=== PATIENT | male | born 1950 | race Hispanic/Latino ===

== ENCOUNTER 2018-02-20 17:36 | Inpatient (IN) | payer MEDICARE ==
[~2018-02-20] VITALS: Ht 175.3 cm; Wt 93.0 kg
[2018-02-20 23:00] VITALS: BP 125/59
[2018-02-21] VITALS (10 sets, daily range): BP systolic 122–210; BP diastolic 3–109
[2018-02-21] MEDS ORDERED: ONDANSETRON 4 MG TABLET PO PRN (00:30)
[2018-02-21] MEDS ORDERED: LIDOCAINE HCL-MPF 1% 2ML VIAL IVP PRN (00:30)
[2018-02-21] MEDS ORDERED: POTASSIUM CHLORIDE 20MEQ/100ML 100 ML IV PRN (00:30)
[2018-02-21] MEDS ORDERED: POTASSIUM CHLORIDE 10% ELIXIR 20 MEQ/15 ML UDCUP PO PRN (00:30)
[2018-02-21] MEDS ORDERED: ACETAMINOPHEN 325 MG TAB PO PRN ×2 (00:30)
[2018-02-21] MEDS ORDERED: POTASSIUM CHLORIDE 20 MEQ ERTAB PO PRN (00:30)
[2018-02-21] MEDS ORDERED: MAGNESIUM 2GM PREMIX 50ML 50 ML IV SCH (00:30)
[2018-02-21] MEDS ORDERED: VANCOMYCIN PROTOCOL PER PHARMACY IV SCH ×2 (00:30→02:15)
[2018-02-21] MEDS ORDERED: MORPHINE SULFATE 2 MG/ML 1ML SYG IVP PRN (00:30)
[2018-02-21] MEDS ORDERED: GLUCAGON 1MG KIT 1 MG ML IM PRN (00:30)
[2018-02-21] MEDS ORDERED: DEXTROSE 50%-WATER 50 ML DISP.SYRIN IV PRN (00:30)
[2018-02-21] MEDS: VANCOMYCIN 1GM+NS 250ML 500 ML IV SCH (02:24)
[2018-02-21 04:08] LABS: HEMATOCRIT 34.4 % (42-54); MEAN CORPUSCULAR HEMOGLOBIN 32.9 pg (27.0-33.0); MEAN CORPUSCULAR HGB CONC 34.7 g/dL (32.0-36.0); MEAN CORPUSCULAR VOLUME 94.8 fL (79-99); PLATELET COUNT (AUTO) 375 K/uL (130-400); RED BLOOD CELL COUNT(AUTO) 3.63 MIL/uL (4.50-6.20); RED CELL DISTRIBUTION WIDTH 14.1 % (11.0-15.5); WHITE BLOOD COUNT (AUTO) 10.7 K/uL (4.8-10.8)
[2018-02-21 04:27] LABS: CREATININE 1.9 mg/dL (0.5-1.5); POTASSIUM 3.7 mmol/L (3.5-5.1)
[2018-02-21] MEDS ORDERED: MEROPENEM 1GM IVPB PREMIXED 1 GM IV SCH (06:00)
[2018-02-21] MEDS: MEROPENEM 1 GM VIAL IVP SCH ×3 (06:36→22:33)
[2018-02-21] MEDS: INSULIN HUMULIN R 100 UNIT/ML 3ML SQ SCH ×4 (06:39→20:26)
[2018-02-21] MEDS ORDERED: COMPOUND IV REFRIGERATED 1 EACH IVSOLN MISC PRN (08:00)
[2018-02-21] MEDS: DOCUSATE SODIUM 100 MG CAP PO SCH ×2 (09:42→20:29)
[2018-02-21] MEDS: LISINOPRIL 10 MG TABLET PO SCH (09:42)
[2018-02-21] MEDS: ENOXAPARIN SODIUM 40 MG/0.4 ML SYRINGE SQ SCH (09:43)
[2018-02-21] MEDS: FAMOTIDINE 20MG TAB 20 MG TAB PO SCH ×2 (09:43→20:29)
[2018-02-21] MEDS: METOPROLOL TARTRATE 25 MG TAB PO SCH ×2 (15:34→17:06)
[2018-02-21] MEDS ORDERED: DIPH,PERTUSS(ACELL),TET VAC/PF 0.5 ML VIAL IM ONE (16:30)
[2018-02-21] MEDS: LACTULOSE 20 GM/30 ML UDCUP PO PRN ×2 (17:06→20:29)
[2018-02-21] MEDS ORDERED: CLONIDINE HCL 0.1 MG TABLET PO PRN (19:30)
[2018-02-21] MEDS: VANCOMYCIN 750MG + NS 250 ML IV SCH ×2 (20:30)
[2018-02-21] MEDS ORDERED: PHARMACY COMMUNICATION MISC SCH (21:30)
[2018-02-22] VITALS (9 sets, daily range): BP systolic 136–194; BP diastolic 64–94
[2018-02-22] MEDS: VANCOMYCIN 1GM+NS 250ML 500 ML IV SCH (02:15)
[2018-02-22] MEDS: HYDRALAZINE HCL 20 MG/ML VIAL IV PRN ×2 (03:46→16:12)
[2018-02-22 04:49] LABS: HEMATOCRIT 36.9 % (42-54); MEAN CORPUSCULAR HEMOGLOBIN 32.6 pg (27.0-33.0); MEAN CORPUSCULAR HGB CONC 34.8 g/dL (32.0-36.0); MEAN CORPUSCULAR VOLUME 93.7 fL (79-99); PLATELET COUNT (AUTO) 412 K/uL (130-400); RED BLOOD CELL COUNT(AUTO) 3.94 MIL/uL (4.50-6.20); RED CELL DISTRIBUTION WIDTH 14.1 % (11.0-15.5); WHITE BLOOD COUNT (AUTO) 9.5 K/uL (4.8-10.8)
[2018-02-22 05:05] LABS: CREATININE 2.6 mg/dL (0.5-1.5); MAGNESIUM 2.1 mg/dL (1.80-2.40); POTASSIUM 3.9 mmol/L (3.5-5.1)
[2018-02-22] MEDS: MEROPENEM 1 GM VIAL IVP SCH ×2 (06:27→18:22)
[2018-02-22] MEDS: INSULIN HUMULIN R 100 UNIT/ML 3ML SQ SCH ×5 (06:29→21:50)
[2018-02-22] MEDS: LISINOPRIL 10 MG TABLET PO SCH (10:08)
[2018-02-22] MEDS: FAMOTIDINE 20MG TAB 20 MG TAB PO SCH (10:08)
[2018-02-22] MEDS: DOCUSATE SODIUM 100 MG CAP PO SCH ×2 (10:08→21:56)
[2018-02-22] MEDS: SENNOSIDES 8.6 MG TABLET PO SCH (10:08)
[2018-02-22] MEDS: VANCOMYCIN 750MG + NS 250 ML IV SCH ×4 (10:09→21:58)
[2018-02-22] MEDS: METOPROLOL TARTRATE 25 MG TAB PO SCH ×2 (10:09→21:56)
[2018-02-22] MEDS: ENOXAPARIN SODIUM 40 MG/0.4 ML SYRINGE SQ SCH (10:10)
[2018-02-22] MEDS ORDERED: RENAL DOSE IV PRN (12:30)
[2018-02-22] MEDS ORDERED: AMLODIPINE BESYLATE 5 MG TAB PO SCH (18:00)
[2018-02-22] MEDS ORDERED: INSULIN GLARGINE 100 UNITS/ML 10 ML VIAL SQ SCH (21:00)
[2018-02-23] VITALS (20 sets, daily range): BP systolic 111–144; BP diastolic 54–79
[2018-02-23 02:09] LABS: APPEARANCE,URINE Clear (CLEAR); BILIRUBIN,URINE Negative (NEGATIVE); COLOR,URINE Yellow (YELLOW); GLUCOSE, URINE (UA) 250 mg/dL (NEGATIVE); KETONES,URINE Negative (NEGATIVE); LEUKOCYTE ESTERASE ,URINE Negative (NEGATIVE); NITRATE,URINE Negative (NEGATIVE); OCCULT BLOOD,URINE Negative (NEGATIVE); PROTEIN,URINE Negative (NEGATIVE)
[2018-02-23 02:14] LABS: BACTERIA,URINE None Seen /HPF (None Seen); RBC,URINE 0-1 /HPF (0-1); WBC,URINE None Seen /HPF (0-1); YEAST,URINE BUDDING None Seen /HPF (None Seen)
[2018-02-23 02:15] LABS: SQUAMOUS EPITHELIAL CELL,UR Rare /HPF (0-2)
[2018-02-23] MEDS: SODIUM CHLORIDE 0.9% 1000ML 1,000 ML IV SCH ×5 (04:08→21:44)
[2018-02-23 04:54] LABS: MEAN CORPUSCULAR HEMOGLOBIN 33.2 pg (27.0-33.0); MEAN CORPUSCULAR HGB CONC 35.3 g/dL (32.0-36.0); MEAN CORPUSCULAR VOLUME 94.2 fL (79-99); PLATELET COUNT (AUTO) 385 K/uL (130-400); RED CELL DISTRIBUTION WIDTH 14.1 % (11.0-15.5); WHITE BLOOD COUNT (AUTO) 8.7 K/uL (4.8-10.8)
[2018-02-23 05:14] LABS: CREATININE 2.6 mg/dL (0.5-1.5); POTASSIUM 3.8 mmol/L (3.5-5.1)
[2018-02-23 05:23] LABS: HEMOGLOBIN A1C 10.4 % (4.0-6.0)
[2018-02-23] MEDS: MEROPENEM 1 GM VIAL IVP SCH ×2 (05:57→18:40)
[2018-02-23] MEDS: INSULIN HUMULIN R 100 UNIT/ML 3ML SQ SCH ×4 (05:58→21:21)
[2018-02-23] MEDS: SENNOSIDES 8.6 MG TABLET PO SCH (09:00)
[2018-02-23] MEDS: DOCUSATE SODIUM 100 MG CAP PO SCH ×2 (09:00→21:20)
[2018-02-23] MEDS: ENOXAPARIN SODIUM 40 MG/0.4 ML SYRINGE SQ SCH (09:00)
[2018-02-23] MEDS: VANCOMYCIN 750MG + NS 250 ML IV SCH ×2 (09:00)
[2018-02-23] MEDS: METOPROLOL TARTRATE 25 MG TAB PO SCH ×2 (09:34→21:20)
[2018-02-23] MEDS: AMLODIPINE BESYLATE 5 MG TAB PO SCH (09:34)
[2018-02-23] MEDS: FAMOTIDINE 20MG TAB 20 MG TAB PO SCH (09:34)
[2018-02-23] MEDS ORDERED: DEXAMETHASONE SOD PHOSPHATE 10MG/ML 1ML VIAL ONE (13:55)
[2018-02-23] MEDS ORDERED: LIDOCAINE PF 2% 5ML ABBOJECT ONE (13:55)
[2018-02-23] MEDS ORDERED: MIDAZOLAM HCL 1 MG/ML 2ML VIAL ONE (13:55)
[2018-02-23] MEDS ORDERED: GLYCOPYRROLATE 0.2 MG/ML 5 ML VIAL ONE (13:55)
[2018-02-23] MEDS ORDERED: PROPOFOL 10 MG/ML 20ML VIAL IV ONE (13:55)
[2018-02-23] MEDS ORDERED: FENTANYL CITRATE PF 50 MCG/1 ML 2ML VIAL ONE (13:57)
[2018-02-23] MEDS ORDERED: BUPIVACAINE/PF 0.5% 30ML VIAL ONE (14:47)
[2018-02-23] MEDS ORDERED: LIDOCAINE HCL 1% 20 ML VIAL ONE (14:47)
[2018-02-23] MEDS ORDERED: HYDROMORPHONE HCL 0.5 MG/0.5 ML ML IVP PRN (19:00)
[2018-02-23] MEDS ORDERED: HYDROMORPHONE 1 MG/1 ML AMP IVP PRN (19:00)
[2018-02-23] MEDS ORDERED: VANCOMYCIN 1GM+NS 250ML 250 ML IV SCH (21:00)
[2018-02-23] MEDS ORDERED: INSULIN GLARGINE 100 UNITS/ML 10 ML VIAL SQ SCH (21:00)
[2018-02-23] MEDS: VANCOMYCIN 1GM+NS 250ML 250 ML IV SCH (21:19)
[2018-02-24] VITALS (7 sets, daily range): BP systolic 124–173; BP diastolic 54–92
[2018-02-24 04:13] LABS: BASOPHILS % (AUTO) 0.4 % (0.0-5.0); EOSINOPHILS % (AUTO) 2.7 % (0.0-8.0); HEMATOCRIT 33.5 % (42-54); LYMPHOCYTES % (AUTO) 12.3 % (21.0-51.0); MEAN CORPUSCULAR HEMOGLOBIN 31.9 pg (27.0-33.0); MEAN CORPUSCULAR HGB CONC 33.5 g/dL (32.0-36.0); MEAN CORPUSCULAR VOLUME 95.2 fL (79-99); MONOCYTES % (AUTO) 13.8 % (3.0-13.0); NEUTROPHILS % (AUTO) 70.8 % (40.0-77.0); PLATELET COUNT (AUTO) 364 K/uL (130-400); RED BLOOD CELL COUNT(AUTO) 3.52 MIL/uL (4.50-6.20); WHITE BLOOD COUNT (AUTO) 8.4 K/uL (4.8-10.8)
[2018-02-24 04:23] LABS: CREATININE 2.7 mg/dL (0.5-1.5); POTASSIUM 4.4 mmol/L (3.5-5.1)
[2018-02-24] MEDS: SODIUM CHLORIDE 0.9% 1000ML 1,000 ML IV SCH ×2 (04:30→17:06)
[2018-02-24] MEDS: MEROPENEM 1 GM VIAL IVP SCH ×2 (05:36→17:05)
[2018-02-24] MEDS: INSULIN HUMULIN R 100 UNIT/ML 3ML SQ SCH ×4 (05:44→21:00)
[2018-02-24] MEDS: DOCUSATE SODIUM 100 MG CAP PO SCH ×2 (10:08→19:58)
[2018-02-24] MEDS: SENNOSIDES 8.6 MG TABLET PO SCH (10:10)
[2018-02-24] MEDS: FAMOTIDINE 20MG TAB 20 MG TAB PO SCH (10:10)
[2018-02-24] MEDS: METOPROLOL TARTRATE 25 MG TAB PO SCH ×2 (10:10→19:58)
[2018-02-24] MEDS: AMLODIPINE BESYLATE 5 MG TAB PO SCH (10:10)
[2018-02-24] MEDS: ENOXAPARIN SODIUM 40 MG/0.4 ML SYRINGE SQ SCH (10:11)
[2018-02-24] MEDS: LACTULOSE 20 GM/30 ML UDCUP PO PRN (13:50)
[2018-02-24] MEDS ORDERED: MORPHINE SULFATE 4 MG/1ML SYG ONE (19:55)
[2018-02-24] MEDS: VANCOMYCIN 1GM+NS 250ML 250 ML IV SCH (19:58)
[2018-02-24] MEDS: INSULIN GLARGINE 100 UNITS/ML 10 ML VIAL SQ SCH (21:31)
[2018-02-25 03:00] VITALS: BP 135/73
[2018-02-25 04:57] LABS: BASOPHILS % (AUTO) 0.4 % (0.0-5.0); EOSINOPHILS % (AUTO) 2.5 % (0.0-8.0); HEMATOCRIT 30.5 % (42-54); LYMPHOCYTES % (AUTO) 14.4 % (21.0-51.0); MEAN CORPUSCULAR HEMOGLOBIN 33.6 pg (27.0-33.0); MEAN CORPUSCULAR HGB CONC 35.4 g/dL (32.0-36.0); MEAN CORPUSCULAR VOLUME 94.8 fL (79-99); MONOCYTES % (AUTO) 10.8 % (3.0-13.0); NEUTROPHILS % (AUTO) 71.9 % (40.0-77.0); NUCLEATED RED BLOOD CELLS 0.1 % (0.0-0.19); PLATELET COUNT (AUTO) 348 K/uL (130-400); RED BLOOD CELL COUNT(AUTO) 3.22 MIL/uL (4.50-6.20); RED CELL DISTRIBUTION WIDTH 14.3 % (11.0-15.5)
[2018-02-25 05:11] LABS: CREATININE 2.9 mg/dL (0.5-1.5); POTASSIUM 4.3 mmol/L (3.5-5.1)
[2018-02-25] MEDS: MEROPENEM 1 GM VIAL IVP SCH ×2 (05:51→16:54)
[2018-02-25] MEDS: INSULIN HUMULIN R 100 UNIT/ML 3ML SQ SCH ×4 (06:55→21:33)
[2018-02-25 08:08] VITALS: BP 144/68
[2018-02-25] MEDS: DOCUSATE SODIUM 100 MG CAP PO SCH ×2 (09:55→21:32)
[2018-02-25] MEDS: AMLODIPINE BESYLATE 5 MG TAB PO SCH (09:55)
[2018-02-25] MEDS: METOPROLOL TARTRATE 25 MG TAB PO SCH (09:56)
[2018-02-25] MEDS: FAMOTIDINE 20MG TAB 20 MG TAB PO SCH (09:57)
[2018-02-25] MEDS: ENOXAPARIN SODIUM 40 MG/0.4 ML SYRINGE SQ SCH (09:57)
[2018-02-25] MEDS: SENNOSIDES 8.6 MG TABLET PO SCH (09:57)
[2018-02-25] MEDS: INSULIN GLARGINE 100 UNITS/ML 10 ML VIAL SQ SCH ×2 (10:00→21:34)
[2018-02-25] MEDS ORDERED: AMLODIPINE BESYLATE 5 MG TAB PO SCH (10:15)
[2018-02-25 12:13] VITALS: BP 159/76
[2018-02-25 15:42] VITALS: BP 133/70
[2018-02-25 20:00] VITALS: BP 126/66
[2018-02-25] MEDS: VANCOMYCIN 1GM+NS 250ML 250 ML IV SCH (21:31)
[2018-02-26] VITALS (7 sets, daily range): BP systolic 127–189; BP diastolic 57–79
[2018-02-26] MEDS: MEROPENEM 1 GM VIAL IVP SCH ×2 (05:33→17:27)
[2018-02-26] MEDS: INSULIN HUMULIN R 100 UNIT/ML 3ML SQ SCH ×4 (05:47→20:53)
[2018-02-26 06:28] LABS: HEMATOCRIT 33.8 % (42-54); MEAN CORPUSCULAR HEMOGLOBIN 32.2 pg (27.0-33.0); MEAN CORPUSCULAR HGB CONC 33.9 g/dL (32.0-36.0); MEAN CORPUSCULAR VOLUME 94.9 fL (79-99); PLATELET COUNT (AUTO) 385 K/uL (130-400); RED BLOOD CELL COUNT(AUTO) 3.56 MIL/uL (4.50-6.20); RED CELL DISTRIBUTION WIDTH 13.9 % (11.0-15.5); WHITE BLOOD COUNT (AUTO) 7.3 K/uL (4.8-10.8)
[2018-02-26 06:39] LABS: CREATININE 2.9 mg/dL (0.5-1.5); POTASSIUM 4.2 mmol/L (3.5-5.1)
[2018-02-26] MEDS: AMLODIPINE BESYLATE 5 MG TAB PO SCH (09:46)
[2018-02-26] MEDS: SENNOSIDES 8.6 MG TABLET PO SCH (09:46)
[2018-02-26] MEDS: DOCUSATE SODIUM 100 MG CAP PO SCH ×2 (09:46→20:06)
[2018-02-26] MEDS: FAMOTIDINE 20MG TAB 20 MG TAB PO SCH (09:46)
[2018-02-26] MEDS: ENOXAPARIN SODIUM 40 MG/0.4 ML SYRINGE SQ SCH (09:47)
[2018-02-26] MEDS: INSULIN GLARGINE 100 UNITS/ML 10 ML VIAL SQ SCH ×2 (09:48→20:54)
[2018-02-26] MEDS: HYDRALAZINE HCL 10 MG TABLET PO SCH (20:05)
[2018-02-26] MEDS: VANCOMYCIN 1GM+NS 250ML 250 ML IV SCH (20:05)
[2018-02-27 04:00] VITALS: BP 159/70
[2018-02-27] MEDS: LACTULOSE 20 GM/30 ML UDCUP PO PRN (05:31)
[2018-02-27] MEDS: MEROPENEM 1 GM VIAL IVP SCH ×2 (05:31→20:17)
[2018-02-27 05:57] LABS: HEMATOCRIT 30.7 % (42-54); MEAN CORPUSCULAR HEMOGLOBIN 33.5 pg (27.0-33.0); MEAN CORPUSCULAR HGB CONC 35.2 g/dL (32.0-36.0); MEAN CORPUSCULAR VOLUME 95.2 fL (79-99); PLATELET COUNT (AUTO) 353 K/uL (130-400); RED BLOOD CELL COUNT(AUTO) 3.23 MIL/uL (4.50-6.20); RED CELL DISTRIBUTION WIDTH 14.1 % (11.0-15.5); WHITE BLOOD COUNT (AUTO) 6.6 K/uL (4.8-10.8)
[2018-02-27] MEDS: INSULIN HUMULIN R 100 UNIT/ML 3ML SQ SCH ×4 (05:58→20:26)
[2018-02-27 06:01] LABS: CREATININE 2.9 mg/dL (0.5-1.5); POTASSIUM 4.3 mmol/L (3.5-5.1)
[2018-02-27 08:00] VITALS: BP 140/60
[2018-02-27] MEDS: AMLODIPINE BESYLATE 5 MG TAB PO SCH (09:44)
[2018-02-27] MEDS: HYDRALAZINE HCL 10 MG TABLET PO SCH ×4 (09:44→20:17)
[2018-02-27] MEDS: DOCUSATE SODIUM 100 MG CAP PO SCH ×2 (09:44→20:16)
[2018-02-27] MEDS: SENNOSIDES 8.6 MG TABLET PO SCH (09:45)
[2018-02-27] MEDS: ENOXAPARIN SODIUM 40 MG/0.4 ML SYRINGE SQ SCH (09:46)
[2018-02-27] MEDS: FAMOTIDINE 20MG TAB 20 MG TAB PO SCH (10:01)
[2018-02-27] MEDS: INSULIN GLARGINE 100 UNITS/ML 10 ML VIAL SQ SCH ×2 (10:10→20:25)
[2018-02-27 11:00] VITALS: BP 153/75
[2018-02-27 16:00] VITALS: BP 140/72
[2018-02-27 20:00] VITALS: BP 150/78
[2018-02-27] MEDS: VANCOMYCIN 1GM+NS 250ML 250 ML IV SCH (20:45)
[2018-02-27 23:42] VITALS: BP 136/66
[2018-02-28 04:00] VITALS: BP 140/64
[2018-02-28] MEDS: MEROPENEM 1 GM VIAL IVP SCH ×2 (05:23→18:02)
[2018-02-28] MEDS: INSULIN HUMULIN R 100 UNIT/ML 3ML SQ SCH ×4 (06:25→20:48)
[2018-02-28 08:00] VITALS: BP 174/76
[2018-02-28] MEDS: AMLODIPINE BESYLATE 5 MG TAB PO SCH (08:29)
[2018-02-28] MEDS: HYDRALAZINE HCL 10 MG TABLET PO SCH ×4 (08:29→20:43)
[2018-02-28] MEDS: FAMOTIDINE 20MG TAB 20 MG TAB PO SCH (08:29)
[2018-02-28] MEDS: DOCUSATE SODIUM 100 MG CAP PO SCH ×2 (08:29→20:43)
[2018-02-28] MEDS: SENNOSIDES 8.6 MG TABLET PO SCH (08:29)
[2018-02-28] MEDS: ENOXAPARIN SODIUM 40 MG/0.4 ML SYRINGE SQ SCH (08:31)
[2018-02-28] MEDS: INSULIN GLARGINE 100 UNITS/ML 10 ML VIAL SQ SCH ×2 (08:40→20:48)
[2018-02-28 11:00] VITALS: BP 141/64
[2018-02-28 16:00] VITALS: BP 154/77
[2018-02-28 20:00] VITALS: BP 164/72
[2018-02-28] MEDS: LACTULOSE 20 GM/30 ML UDCUP PO PRN (20:43)
[2018-02-28] MEDS: VANCOMYCIN 1GM+NS 250ML 250 ML IV SCH (21:00)
[2018-03-01] VITALS (7 sets, daily range): BP systolic 134–166; BP diastolic 68–77
[2018-03-01 04:55] LABS: HEMATOCRIT 31.6 % (42-54); MEAN CORPUSCULAR HEMOGLOBIN 32.1 pg (27.0-33.0); MEAN CORPUSCULAR HGB CONC 34.3 g/dL (32.0-36.0); MEAN CORPUSCULAR VOLUME 93.5 fL (79-99); PLATELET COUNT (AUTO) 305 K/uL (130-400); RED BLOOD CELL COUNT(AUTO) 3.37 MIL/uL (4.50-6.20); RED CELL DISTRIBUTION WIDTH 14.2 % (11.0-15.5); WHITE BLOOD COUNT (AUTO) 6.6 K/uL (4.8-10.8)
[2018-03-01 05:09] LABS: CREATININE 2.8 mg/dL (0.5-1.5); POTASSIUM 4.3 mmol/L (3.5-5.1)
[2018-03-01] MEDS: MEROPENEM 1 GM VIAL IVP SCH ×2 (05:55→17:30)
[2018-03-01] MEDS: INSULIN HUMULIN R 100 UNIT/ML 3ML SQ SCH ×4 (06:32→20:43)
[2018-03-01] MEDS: FAMOTIDINE 20MG TAB 20 MG TAB PO SCH (10:00)
[2018-03-01] MEDS: HYDRALAZINE HCL 10 MG TABLET PO SCH ×4 (10:01→20:32)
[2018-03-01] MEDS: SENNOSIDES 8.6 MG TABLET PO SCH (10:01)
[2018-03-01] MEDS: DOCUSATE SODIUM 100 MG CAP PO SCH ×2 (10:01→20:32)
[2018-03-01] MEDS: ENOXAPARIN SODIUM 40 MG/0.4 ML SYRINGE SQ SCH (10:01)
[2018-03-01] MEDS: AMLODIPINE BESYLATE 5 MG TAB PO SCH (10:01)
[2018-03-01] MEDS: INSULIN GLARGINE 100 UNITS/ML 10 ML VIAL SQ SCH ×2 (10:12→20:42)
[2018-03-01] MEDS ORDERED: GLYB5TAB8 PO (23:02)
[2018-03-01] MEDS ORDERED: METF500T6 PO (23:02)
[2018-03-01] MEDS ORDERED: PREG75 PO (23:02)
[2018-03-01] MEDS ORDERED: CILO100T PO (23:02)
[2018-03-02 03:18] VITALS: BP 143/74
[2018-03-02] MEDS: MEROPENEM 1 GM VIAL IVP SCH ×2 (06:02→18:35)
[2018-03-02] MEDS: INSULIN HUMULIN R 100 UNIT/ML 3ML SQ SCH ×3 (06:03→18:46)
[2018-03-02 08:00] VITALS: BP 148/70
[2018-03-02] MEDS: DOCUSATE SODIUM 100 MG CAP PO SCH ×2 (11:05→20:27)
[2018-03-02] MEDS: HYDRALAZINE HCL 10 MG TABLET PO SCH ×3 (11:05→20:28)
[2018-03-02] MEDS: FAMOTIDINE 20MG TAB 20 MG TAB PO SCH (11:06)
[2018-03-02] MEDS: SENNOSIDES 8.6 MG TABLET PO SCH (11:06)
[2018-03-02] MEDS: AMLODIPINE BESYLATE 5 MG TAB PO SCH (11:06)
[2018-03-02] MEDS: ENOXAPARIN SODIUM 40 MG/0.4 ML SYRINGE SQ SCH (11:07)
[2018-03-02] MEDS: INSULIN GLARGINE 100 UNITS/ML 10 ML VIAL SQ SCH ×2 (11:15→20:43)
[2018-03-02 11:46] VITALS: BP 141/77
[2018-03-02 16:00] VITALS: BP 156/69
[2018-03-02 19:07] VITALS: BP 166/76
[2018-03-02 23:16] VITALS: BP 139/74
[2018-03-03 03:27] VITALS: BP 131/68
[2018-03-03] MEDS: MEROPENEM 1 GM VIAL IVP SCH (05:52)
[2018-03-03] MEDS: INSULIN HUMULIN R 100 UNIT/ML 3ML SQ SCH ×3 (05:53→16:30)
[2018-03-03 08:22] VITALS: BP 166/73
[2018-03-03] MEDS: AMLODIPINE BESYLATE 5 MG TAB PO SCH (09:15)
[2018-03-03] MEDS: SENNOSIDES 8.6 MG TABLET PO SCH (09:15)
[2018-03-03] MEDS: HYDRALAZINE HCL 10 MG TABLET PO SCH ×3 (09:16→17:00)
[2018-03-03] MEDS: FAMOTIDINE 20MG TAB 20 MG TAB PO SCH (09:16)
[2018-03-03] MEDS: DOCUSATE SODIUM 100 MG CAP PO SCH (09:16)
[2018-03-03] MEDS: ENOXAPARIN SODIUM 40 MG/0.4 ML SYRINGE SQ SCH (09:16)
[2018-03-03] MEDS: INSULIN GLARGINE 100 UNITS/ML 10 ML VIAL SQ SCH (09:45)
[2018-03-03 11:20] VITALS: BP 132/72
[2018-03-03 18:00] VITALS: BP 156/80
[2018-03-03] MEDS ORDERED: VANCOMYCIN 500MG+NS 100ML 100 ML IV SCH (21:00)
== END 2018-03-03 18:00 | DRG 617 ==
LOC: 3CH 22:51
PROVIDERS: ADMIT Family Medicine; ATTEND Family Medicine
PROC: 0Y6M0ZF Detachment at Right Foot, Partial 5th Ray, Open Approach (ICD-10-PCS; 2018-02-23)
PROC: 3E0234Z Introduction of Serum, Toxoid and Vaccine into Muscle, Percutaneous Approach (ICD-10-PCS; 2018-02-23)
PROC: 0Y6M0ZD Detachment at Right Foot, Partial 4th Ray, Open Approach (ICD-10-PCS; principal; 2018-02-23 14:50)
DX: E11.621 Type 2 diabetes mellitus with foot ulcer (principal); M86.679 Other chronic osteomyelitis, unspecified ankle and foot; N17.0 Acute kidney failure with tubular necrosis; L02.611 Cutaneous abscess of right foot; L03.115 Cellulitis of right lower limb; L03.113 Cellulitis of right upper limb; E11.628 Type 2 diabetes mellitus with other skin complications; E11.65 Type 2 diabetes mellitus with hyperglycemia; M79.89 Other specified soft tissue disorders; E11.51 Type 2 diabetes mellitus with diabetic peripheral angiopathy without gangrene; B96.1 Klebsiella pneumoniae [K. pneumoniae] as the cause of diseases classified elsewhere; D64.9 Anemia, unspecified; E11.21 Type 2 diabetes mellitus with diabetic nephropathy; E11.22 Type 2 diabetes mellitus with diabetic chronic kidney disease; E11.69 Type 2 diabetes mellitus with other specified complication; E66.9 Obesity, unspecified; E11.42 Type 2 diabetes mellitus with diabetic polyneuropathy; I12.9 Hypertensive chronic kidney disease with stage 1 through stage 4 chronic kidney disease, or unspecified chronic kidney disease; N18.9 Chronic kidney disease, unspecified; B95.2 Enterococcus as the cause of diseases classified elsewhere; B96.89 Other specified bacterial agents as the cause of diseases classified elsewhere; L97.519 Non-pressure chronic ulcer of other part of right foot with unspecified severity; Z96.653 Presence of artificial knee joint, bilateral; Z68.30 Body mass index [BMI] 30.0-30.9, adult; Z89.429 Acquired absence of other toe(s), unspecified side; Z23 Encounter for immunization; Z83.3 Family history of diabetes mellitus; Z82.49 Family history of ischemic heart disease and other diseases of the circulatory system
CPT/HCPCS: 36415; 73630; 73718; 76770; 80048; 80061; 80202; 81001; 82948; 83036; 83735; 85025; 85027; 87040; 87070; 87076; 87077; 87088; 87186; 87205; 88304; 88305; 88311; 90715; 93925; 93971; 97039; A4218; J0360; J1100; J1650; J1815; J2001; J2185; J2250; J2270; J2704; J3010; J3370; J3490; J7030

== ENCOUNTER 2018-05-02 03:41 | Inpatient (IN) | payer MEDICARE ==
[2018-05-02] VITALS (36 sets, daily range): BP systolic 91–156; BP diastolic 46–86
[~2018-05-02] VITALS: Ht 175.3 cm; Wt 98.3 kg
[~2018-05-02 03:41] MED LIST: CILO100T PO; GLYB5TAB8 PO; METF500T6 PO; PREG75 PO
[2018-05-02] MEDS ORDERED: GLUCAGON 1MG KIT 1 MG ML IM PRN (05:15)
[2018-05-02] MEDS ORDERED: DEXTROSE 50%-WATER 50 ML DISP.SYRIN IV PRN (05:15)
[2018-05-02 05:59] LABS: HEMATOCRIT 28.3 % (42-54); MEAN CORPUSCULAR HEMOGLOBIN 30.8 pg (27.0-33.0); MEAN CORPUSCULAR HGB CONC 34.6 g/dL (32.0-36.0); PLATELET COUNT (AUTO) 193 K/uL (130-400); RED BLOOD CELL COUNT(AUTO) 3.18 MIL/uL (4.50-6.20); RED CELL DISTRIBUTION WIDTH 13.7 % (11.0-15.5)
[2018-05-02 06:07] LABS: CREATININE 1.1 mg/dL (0.5-1.5); POTASSIUM 3.9 mmol/L (3.5-5.1)
[2018-05-02 06:09] LABS: INR 1.09 (0.85-1.15); PARTIAL THROMBOPLASTIN TIME 28.5 SEC (26.3-35.5); PROTHROMBIN TIME 11.4 SEC (9.6-11.6)
[2018-05-02] MEDS: INSULIN HUMULIN R 100 UNIT/ML 3ML SQ SCH ×4 (07:30→21:00)
[2018-05-02] MEDS ORDERED: DOCUSATE SODIUM 100 MG CAP PO PRN (08:00)
[2018-05-02] MEDS ORDERED: ISOSORBIDE MONONITRATE 20 MG TABLET PO PRN (08:00)
[2018-05-02] MEDS: ZOSYN 3.375GM+NS 50ML 50 ML IV SCH ×2 (08:35→21:36)
[2018-05-02] MEDS: NITROGLYCERIN 1GM/1 INCH PACKET TD SCH ×3 (08:35→21:37)
[2018-05-02] MEDS ORDERED: ASPIRIN 325MG EC TAB 325 MG TABLET.DR PO SCH (09:00)
[2018-05-02] MEDS: ENOXAPARIN SODIUM 100 MG/1 ML SQ SCH ×2 (09:00→21:38)
[2018-05-02] MEDS ORDERED: LISINOPRIL 5 MG TABLET PO SCH (09:00)
[2018-05-02] MEDS ORDERED: AMLODIPINE BESYLATE 5 MG TAB PO SCH (09:00)
[2018-05-02] MEDS ORDERED: METOPROLOL TARTRATE 25 MG TAB PO SCH (09:00)
[2018-05-02] MEDS ORDERED: NITROGLYCERIN 5 MG/ML 10 ML VIAL IV ONE (17:27)
[2018-05-02] MEDS ORDERED: HEPARIN SODIUM 1000UNIT/ML 10ML VIAL ONE (17:27)
[2018-05-02] MEDS ORDERED: BIVALIRUDIN 250 MG/VIAL IV ONE (17:27)
[2018-05-02] MEDS ORDERED: ISOVUE-370 50ML VIAL IV ONE (17:28)
[2018-05-02] MEDS ORDERED: IOPAMIDOL-370 75 ML VIAL IV ONE ×2 (17:28→19:14)
[2018-05-02] MEDS ORDERED: LIDOCAINE HCL 2% 20ML ONE (17:28)
[2018-05-02] MEDS ORDERED: TICAGRELOR 90 MG TABLET ONE (20:19)
[2018-05-02] MEDS ORDERED: ONDANSETRON HCL 4 MG/2 ML VIAL IVP PRN (20:30)
[2018-05-02] MEDS ORDERED: ACETAMINOPHEN-CODEINE 300/30MG TAB PO PRN ×2 (20:30)
[2018-05-02] MEDS ORDERED: MORPHINE SULFATE 5 MG/ML VIAL IVP SCH (20:30)
[2018-05-02] MEDS ORDERED: TEMAZEPAM 30 MG CAP PO PRN (20:30)
[2018-05-02] MEDS ORDERED: ONDANSETRON HCL 4 MG/2 ML VIAL IVP SCH (20:30)
[2018-05-02] MEDS ORDERED: NITROGLYCERIN 50 MG/D5% WATER 1 BOT IV PRN (20:30)
[2018-05-02] MEDS ORDERED: METOPROLOL TARTRATE 50 MG TAB PO SCH (21:00)
[2018-05-02] MEDS ORDERED: SODIUM CHLORIDE 0.9% 1000ML 1,000 ML IV SCH (21:00)
[2018-05-02] MEDS ORDERED: TICAGRELOR 90 MG TABLET PO SCH (21:00)
[2018-05-02] MEDS: FUROSEMIDE 10 MG/ML 4ML VIAL IV SCH (21:15)
[2018-05-02] MEDS ORDERED: FUROSEMIDE 10 MG/ML 4ML VIAL ONE (21:16)
[2018-05-02] MEDS: ATORVASTATIN CALCIUM 40 MG TABLET PO SCH (21:36)
[2018-05-02] MEDS ORDERED: MORPHINE SULFATE 4 MG/1ML SYG ONE (22:32)
[2018-05-02] MEDS ORDERED: DIPHENHYDRAMINE HCL 25 MG CAPSULE ONE (23:00)
[2018-05-02] MEDS ORDERED: DIPHENHYDRAMINE HCL 25 MG CAPSULE PO PRN (23:00)
[2018-05-02] MEDS ORDERED: FUROSEMIDE 10 MG/ML 4ML VIAL IV PRN (23:30)
[2018-05-02] MEDS ORDERED: DIPHENHYDRAMINE HCL 25 MG CAPSULE PO SCH (23:30)
[2018-05-03] VITALS (7 sets, daily range): BP systolic 93–114; BP diastolic 48–57
[2018-05-03] MEDS: NITROGLYCERIN 1GM/1 INCH PACKET TD SCH ×2 (02:00→08:00)
[2018-05-03 04:01] LABS: HEMATOCRIT 28.8 % (42-54); MEAN CORPUSCULAR HEMOGLOBIN 30.7 pg (27.0-33.0); MEAN CORPUSCULAR HGB CONC 34.2 g/dL (32.0-36.0); MEAN CORPUSCULAR VOLUME 89.9 fL (79-99); PLATELET COUNT (AUTO) 198 K/uL (130-400); RED CELL DISTRIBUTION WIDTH 14.1 % (11.0-15.5); WHITE BLOOD COUNT (AUTO) 10.9 K/uL (4.8-10.8)
[2018-05-03 04:20] LABS: CREATININE 1.4 mg/dL (0.5-1.5); POTASSIUM 4.2 mmol/L (3.5-5.1)
[2018-05-03] MEDS: FUROSEMIDE 10 MG/ML 4ML VIAL IV SCH (05:30)
[2018-05-03] MEDS: INSULIN HUMULIN R 100 UNIT/ML 3ML SQ SCH ×4 (06:13→21:00)
[2018-05-03] MEDS: ZOSYN 3.375GM+NS 50ML 50 ML IV SCH ×2 (08:23→21:26)
[2018-05-03] MEDS ORDERED: ISOSORBIDE MONO 30MG TAB SR PO SCH (09:00)
[2018-05-03] MEDS ORDERED: ATROPINE SULF IV PRN (09:45)
[2018-05-03] MEDS: TICAGRELOR 90 MG TABLET PO SCH ×2 (10:07→21:27)
[2018-05-03] MEDS: PANTOPRAZOLE SODIUM 40 MG TABLET.DR PO SCH (10:07)
[2018-05-03] MEDS: ASPIRIN 81MG TAB.CHEW PO SCH (10:07)
[2018-05-03] MEDS: ACETYLCYSTEINE 10% 100MG/ML 4ML VIAL PO SCH ×2 (10:08→18:09)
[2018-05-03] MEDS: ENOXAPARIN SODIUM 100 MG/1 ML SQ SCH ×2 (10:08→21:28)
[2018-05-03] MEDS: ATORVASTATIN CALCIUM 40 MG TABLET PO SCH (21:26)
[2018-05-03] MEDS: SODIUM CHLORIDE 0.9% 1000ML 1,000 ML IV SCH (22:35)
[2018-05-04] MEDS: ACETYLCYSTEINE 10% 100MG/ML 4ML VIAL PO SCH ×3 (03:54→21:22)
[2018-05-04 03:55] VITALS: BP 136/68
[2018-05-04 04:22] LABS: HEMATOCRIT 24.7 % (42-54); MEAN CORPUSCULAR HGB CONC 35.7 g/dL (32.0-36.0); MEAN CORPUSCULAR VOLUME 89.7 fL (79-99); PLATELET COUNT (AUTO) 181 K/uL (130-400); RED BLOOD CELL COUNT(AUTO) 2.76 MIL/uL (4.50-6.20); RED CELL DISTRIBUTION WIDTH 14.1 % (11.0-15.5); WHITE BLOOD COUNT (AUTO) 6.7 K/uL (4.8-10.8)
[2018-05-04 04:30] LABS: CREATININE 2.1 mg/dL (0.5-1.5); POTASSIUM 3.7 mmol/L (3.5-5.1)
[2018-05-04] MEDS: INSULIN HUMULIN R 100 UNIT/ML 3ML SQ SCH ×4 (06:46→21:22)
[2018-05-04 07:00] VITALS: BP 130/60
[2018-05-04] MEDS: PANTOPRAZOLE SODIUM 40 MG TABLET.DR PO SCH (08:41)
[2018-05-04] MEDS: TICAGRELOR 90 MG TABLET PO SCH ×2 (08:41→21:12)
[2018-05-04] MEDS: ZOSYN 3.375GM+NS 50ML 50 ML IV SCH ×2 (08:41→21:12)
[2018-05-04] MEDS: ASPIRIN 81MG TAB.CHEW PO SCH (08:41)
[2018-05-04] MEDS: ENOXAPARIN SODIUM 30 MG/0.3 ML SQ SCH (08:42)
[2018-05-04] MEDS: SODIUM CHLORIDE 0.9% 1000ML 1,000 ML IV SCH (09:15)
[2018-05-04 11:00] VITALS: BP 134/67
[2018-05-04 16:00] VITALS: BP 149/70
[2018-05-04 17:30] LABS: CREATININE,URINE RANDOM 59 mg/dL (30-135); SODIUM,URINE RANDOM 56 mmol/l (40-220)
[2018-05-04 19:54] VITALS: BP 132/63
[2018-05-04] MEDS: ATORVASTATIN CALCIUM 20 MG TABLET PO SCH (21:12)
[2018-05-05] VITALS (8 sets, daily range): BP systolic 125–155; BP diastolic 46–97
[2018-05-05 04:47] LABS: BASOPHILS % (AUTO) 0.5 % (0.0-5.0); EOSINOPHILS % (AUTO) 4.4 % (0.0-8.0); HEMATOCRIT 25.8 % (42-54); LYMPHOCYTES % (AUTO) 23.4 % (21.0-51.0); MEAN CORPUSCULAR HEMOGLOBIN 31.2 pg (27.0-33.0); MEAN CORPUSCULAR HGB CONC 34.8 g/dL (32.0-36.0); MEAN CORPUSCULAR VOLUME 89.6 fL (79-99); MONOCYTES % (AUTO) 14.2 % (3.0-13.0); NEUTROPHILS % (AUTO) 57.5 % (40.0-77.0); PLATELET COUNT (AUTO) 179 K/uL (130-400); RED BLOOD CELL COUNT(AUTO) 2.88 MIL/uL (4.50-6.20); WHITE BLOOD COUNT (AUTO) 5.1 K/uL (4.8-10.8)
[2018-05-05 05:00] LABS: ALBUMIN 2.8 g/dL (3.5-5.0); BILIRUBIN,TOTAL 0.5 mg/dL (0.2-1.0); CREATININE 1.3 mg/dL (0.5-1.5); MAGNESIUM 1.7 mg/dL (1.80-2.40); PHOSPHORUS 3.3 mg/dL (2.5-4.9); POTASSIUM 3.6 mmol/L (3.5-5.1); TOTAL PROTEIN, SERUM 6.4 g/dL (6.0-8.3)
[2018-05-05 05:01] LABS: % IRON SATURATION 20.1 % (30-44)
[2018-05-05] MEDS: ACETYLCYSTEINE 10% 100MG/ML 4ML VIAL PO SCH (06:11)
[2018-05-05] MEDS: INSULIN HUMULIN R 100 UNIT/ML 3ML SQ SCH ×4 (07:30→22:32)
[2018-05-05] MEDS ORDERED: COMPOUND IV MISC 1 EACH IVSOLN MISC PRN (09:15)
[2018-05-05] MEDS: TICAGRELOR 90 MG TABLET PO SCH ×2 (09:24→22:17)
[2018-05-05] MEDS: METOPROLOL TARTRATE 25 MG TAB PO SCH ×2 (09:24→20:19)
[2018-05-05] MEDS: ASPIRIN 81MG TAB.CHEW PO SCH (09:24)
[2018-05-05] MEDS: PANTOPRAZOLE SODIUM 40 MG TABLET.DR PO SCH (09:24)
[2018-05-05] MEDS: ZOSYN 3.375GM+NS 50ML 50 ML IV SCH ×2 (09:25→22:17)
[2018-05-05] MEDS: ENOXAPARIN SODIUM 30 MG/0.3 ML SQ SCH (09:25)
[2018-05-05] MEDS ORDERED: LACTULOSE 20 GM/30 ML UDCUP PO PRN (10:30)
[2018-05-05] MEDS: SODIUM CHLORIDE 0.9% 1000ML 1,000 ML IV SCH (11:55)
[2018-05-05] MEDS: IRON SUCROSE COMPLEX 100 MG in SODIUM CHLORIDE 0.9% 50 ML IV SCH (13:50)
[2018-05-05 14:23] LABS: APPEARANCE,URINE Clear (CLEAR); BILIRUBIN,URINE Negative (NEGATIVE); COLOR,URINE Yellow (YELLOW); GLUCOSE, URINE (UA) 500 mg/dL (NEGATIVE); KETONES,URINE Negative (NEGATIVE); LEUKOCYTE ESTERASE ,URINE Negative (NEGATIVE); NITRATE,URINE Negative (NEGATIVE); OCCULT BLOOD,URINE Negative (NEGATIVE); PROTEIN,URINE Negative (NEGATIVE)
[2018-05-05 14:55] LABS: BACTERIA,URINE Rare /HPF (None Seen); RBC,URINE None Seen /HPF (0-1); SQUAMOUS EPITHELIAL CELL,UR None Seen /HPF (0-2); WBC,URINE 0-1 /HPF (0-1)
[2018-05-05] MEDS: ATORVASTATIN CALCIUM 20 MG TABLET PO SCH (22:16)
[2018-05-06] MEDS: SODIUM CHLORIDE 0.9% 1000ML 1,000 ML IV SCH (01:15)
[2018-05-06 03:39] LABS: HEMATOCRIT 25.3 % (42-54); MEAN CORPUSCULAR HEMOGLOBIN 31.2 pg (27.0-33.0); MEAN CORPUSCULAR HGB CONC 34.9 g/dL (32.0-36.0); MEAN CORPUSCULAR VOLUME 89.2 fL (79-99); PLATELET COUNT (AUTO) 188 K/uL (130-400); RED BLOOD CELL COUNT(AUTO) 2.83 MIL/uL (4.50-6.20); RED CELL DISTRIBUTION WIDTH 14.3 % (11.0-15.5); WHITE BLOOD COUNT (AUTO) 5.1 K/uL (4.8-10.8)
[2018-05-06 03:41] LABS: CREATININE 1.2 mg/dL (0.5-1.5); POTASSIUM 3.6 mmol/L (3.5-5.1)
[2018-05-06 03:54] VITALS: BP 140/72
[2018-05-06] MEDS: INSULIN HUMULIN R 100 UNIT/ML 3ML SQ SCH ×4 (07:30→21:00)
[2018-05-06 07:38] VITALS: BP 165/87
[2018-05-06] MEDS: TICAGRELOR 90 MG TABLET PO SCH ×2 (09:59→20:09)
[2018-05-06] MEDS: PANTOPRAZOLE SODIUM 40 MG TABLET.DR PO SCH (09:59)
[2018-05-06] MEDS: ASPIRIN 81MG TAB.CHEW PO SCH (09:59)
[2018-05-06] MEDS: METOPROLOL TARTRATE 25 MG TAB PO SCH ×2 (09:59→19:32)
[2018-05-06] MEDS: IRON SUCROSE COMPLEX 100 MG in SODIUM CHLORIDE 0.9% 50 ML IV SCH (10:01)
[2018-05-06] MEDS: ZOSYN 3.375GM+NS 50ML 50 ML IV SCH ×2 (10:01→20:09)
[2018-05-06] MEDS: ENOXAPARIN SODIUM 30 MG/0.3 ML SQ SCH (10:02)
[2018-05-06 11:18] VITALS: BP 148/75
[2018-05-06 16:18] VITALS: BP 122/60
[2018-05-06 19:29] VITALS: BP 129/62
[2018-05-06] MEDS: ATORVASTATIN CALCIUM 20 MG TABLET PO SCH (20:09)
[2018-05-06 23:42] VITALS: BP 117/56
[2018-05-07 03:41] VITALS: BP 134/56
[2018-05-07] MEDS: INSULIN HUMULIN R 100 UNIT/ML 3ML SQ SCH ×4 (05:47→21:52)
[2018-05-07 07:16] VITALS: BP 152/90
[2018-05-07] MEDS: METOPROLOL TARTRATE 25 MG TAB PO SCH ×2 (09:00→19:22)
[2018-05-07] MEDS: ENOXAPARIN SODIUM 30 MG/0.3 ML SQ SCH (09:00)
[2018-05-07] MEDS: IRON SUCROSE COMPLEX 100 MG in SODIUM CHLORIDE 0.9% 50 ML IV SCH (09:06)
[2018-05-07] MEDS: ASPIRIN 81MG TAB.CHEW PO SCH (09:07)
[2018-05-07] MEDS: ZOSYN 3.375GM+NS 50ML 50 ML IV SCH ×2 (09:07→21:48)
[2018-05-07] MEDS: TICAGRELOR 90 MG TABLET PO SCH ×2 (09:07→21:48)
[2018-05-07] MEDS: PANTOPRAZOLE SODIUM 40 MG TABLET.DR PO SCH (09:07)
[2018-05-07 11:38] VITALS: BP 131/54
[2018-05-07 17:02] VITALS: BP 143/77
[2018-05-07 19:55] VITALS: BP 131/56
[2018-05-07] MEDS: ATORVASTATIN CALCIUM 20 MG TABLET PO SCH (21:48)
[2018-05-07 23:48] VITALS: BP 140/75
[2018-05-08 04:24] VITALS: BP 154/79
[2018-05-08] MEDS: INSULIN HUMULIN R 100 UNIT/ML 3ML SQ SCH ×4 (06:10→20:59)
[2018-05-08 07:00] VITALS: BP 154/84
[2018-05-08] MEDS: ENOXAPARIN SODIUM 30 MG/0.3 ML SQ SCH ×2 (09:00→09:20)
[2018-05-08] MEDS: METOPROLOL TARTRATE 25 MG TAB PO SCH (09:00)
[2018-05-08] MEDS: IRON SUCROSE COMPLEX 100 MG in SODIUM CHLORIDE 0.9% 50 ML IV SCH (09:20)
[2018-05-08] MEDS: TICAGRELOR 90 MG TABLET PO SCH ×2 (09:20→20:59)
[2018-05-08] MEDS: PANTOPRAZOLE SODIUM 40 MG TABLET.DR PO SCH (09:20)
[2018-05-08] MEDS: ASPIRIN 81MG TAB.CHEW PO SCH (09:20)
[2018-05-08] MEDS: ZOSYN 3.375GM+NS 50ML 50 ML IV SCH ×2 (09:31→20:59)
[2018-05-08 11:00] VITALS: BP 139/69
[2018-05-08 15:07] LABS: HEMATOCRIT 28.6 % (42-54); MEAN CORPUSCULAR HEMOGLOBIN 30.6 pg (27.0-33.0); MEAN CORPUSCULAR HGB CONC 33.7 g/dL (32.0-36.0); MEAN CORPUSCULAR VOLUME 90.7 fL (79-99); PLATELET COUNT (AUTO) 222 K/uL (130-400); RED BLOOD CELL COUNT(AUTO) 3.15 MIL/uL (4.50-6.20); RED CELL DISTRIBUTION WIDTH 14.6 % (11.0-15.5); WHITE BLOOD COUNT (AUTO) 5.1 K/uL (4.8-10.8)
[2018-05-08 15:22] LABS: CREATININE 1.3 mg/dL (0.5-1.5); MAGNESIUM 1.7 mg/dL (1.80-2.40)
[2018-05-08 16:00] VITALS: BP 168/95
[2018-05-08] MEDS: MAGNESIUM 2GM PREMIX 50ML 50 ML IV PRN (17:29)
[2018-05-08 20:06] VITALS: BP 112/52
[2018-05-08] MEDS: ATORVASTATIN CALCIUM 20 MG TABLET PO SCH (20:59)
[2018-05-09 00:02] VITALS: BP 126/68
[2018-05-09 04:38] VITALS: BP 128/59
[2018-05-09] MEDS: INSULIN HUMULIN R 100 UNIT/ML 3ML SQ SCH ×3 (06:44→16:23)
[2018-05-09 07:48] VITALS: BP 142/69
[2018-05-09] MEDS: PANTOPRAZOLE SODIUM 40 MG TABLET.DR PO SCH (08:00)
[2018-05-09] MEDS: TICAGRELOR 90 MG TABLET PO SCH (08:00)
[2018-05-09] MEDS: ASPIRIN 81MG TAB.CHEW PO SCH (08:00)
[2018-05-09] MEDS: ZOSYN 3.375GM+NS 50ML 50 ML IV SCH (08:01)
[2018-05-09] MEDS: IRON SUCROSE COMPLEX 100 MG in SODIUM CHLORIDE 0.9% 50 ML IV SCH (09:00)
[2018-05-09 11:27] VITALS: BP 155/95
[2018-05-09] MEDS: MAGNESIUM 2GM PREMIX 50ML 50 ML IV PRN (14:33)
[2018-05-09 16:18] VITALS: BP 149/87
== END 2018-05-09 17:40 | disposition home or self-care (01) | DRG 248 ==
LOC: 2CH 03:41 → 2BH 19:16 → 2DH 23:58
PROVIDERS: ADMIT Family Medicine; ATTEND Family Medicine
PROC: 02703DZ Dilation of Coronary Artery, One Artery with Intraluminal Device, Percutaneous Approach (ICD-10-PCS; principal; 2018-05-02)
PROC: 4A023N7 Measurement of Cardiac Sampling and Pressure, Left Heart, Percutaneous Approach (ICD-10-PCS; 2018-05-02)
PROC: B2111ZZ Fluoroscopy of Multiple Coronary Arteries using Low Osmolar Contrast (ICD-10-PCS; 2018-05-02)
PROC: B2151ZZ Fluoroscopy of Left Heart using Low Osmolar Contrast (ICD-10-PCS; 2018-05-02)
PROC: 02703ZZ Dilation of Coronary Artery, One Artery, Percutaneous Approach (ICD-10-PCS; 2018-05-02)
DX: I21.4 Non-ST elevation (NSTEMI) myocardial infarction (principal); J18.9 Pneumonia, unspecified organism; I50.23 Acute on chronic systolic (congestive) heart failure; N17.9 Acute kidney failure, unspecified; I13.0 Hypertensive heart and chronic kidney disease with heart failure and stage 1 through stage 4 chronic kidney disease, or unspecified chronic kidney disease; T50.8X5A Adverse effect of diagnostic agents, initial encounter; Y95 Nosocomial condition; E11.65 Type 2 diabetes mellitus with hyperglycemia; E11.40 Type 2 diabetes mellitus with diabetic neuropathy, unspecified; E11.51 Type 2 diabetes mellitus with diabetic peripheral angiopathy without gangrene; F10.10 Alcohol abuse, uncomplicated; D64.9 Anemia, unspecified; E11.21 Type 2 diabetes mellitus with diabetic nephropathy; E11.22 Type 2 diabetes mellitus with diabetic chronic kidney disease; E11.621 Type 2 diabetes mellitus with foot ulcer; E11.69 Type 2 diabetes mellitus with other specified complication; I25.110 Atherosclerotic heart disease of native coronary artery with unstable angina pectoris; K59.00 Constipation, unspecified; L97.519 Non-pressure chronic ulcer of other part of right foot with unspecified severity; N14.1 Nephropathy induced by other drugs, medicaments and biological substances; N18.9 Chronic kidney disease, unspecified; Z96.653 Presence of artificial knee joint, bilateral; Z89.429 Acquired absence of other toe(s), unspecified side; I25.2 Old myocardial infarction; Z89.421 Acquired absence of other right toe(s); Z87.01 Personal history of pneumonia (recurrent); Z83.3 Family history of diabetes mellitus; Z82.49 Family history of ischemic heart disease and other diseases of the circulatory system
CPT/HCPCS: 36415; 71045; 76770; 80048; 80053; 80061; 81001; 82570; 82728; 82948; 83540; 83550; 83735; 83880; 84100; 84300; 84484; 84550; 85025; 85027; 85610; 85730; 93005; 93306; 93458; C1725; C1769; C1887; C1894; C9600; C9601; J0583; J1644; J1650; J1756; J1815; J1940; J2270; J2405; J2543; J3475; J3490; J7030; J7608; Q0163; Q9967